=== PATIENT | male | born 1945 | race Caucasian/White ===

== ENCOUNTER → 2017-10-29 08:32 | Outpatient (CLI) | payer MEDICARE ==
[2015-10-25 11:26] VITALS: BMI 29.1
[~2017-10-29 08:32] MED LIST: ACETAMINOPHEN500 M1 PO; ANDROGEL5 GM TP; BAYER CHEWABLE81 MG PO; CELEBREX200 MG PO; CIALIS10 MG PO; CO Q-10100 MG PO; CRESTOR10 MG PO; GLUCOSAMINE & C1 CAP PO; INDERAL10 MG PO; MULTIPLE VITAMI1 TA1 PO; OMEGA-3100 MG PO; OMEPRAZOLE20 M1 PO; PLAVIX75 MG PO; RESTORIL15 MG PO; ULTRAM50 MG PO; VITAMIN B-121000 MCG PO; ZANAFLEX4 MG PO; ZOCOR20 MG PO
== END | disposition home or self-care (01) ==
LOC: D.RAD 08:32
DX: M25.551 Pain in right hip (principal)

== ENCOUNTER → 2018-01-14 07:28 | Outpatient (CLI) | payer MEDICARE ==
[~2018-01-14] VITALS: Ht 165.1 cm; Wt 72.7 kg
--- NOTE | ~2018-01-14 | OP ---
PATIENT NAME: WINSTON WHITMORE MEDICAL RECORD: [id number] :47 LOCATION:D.CAT ADMISSION DATE: SURGEON: JERED LARA MD DATE OF OPERATION: 01/14/2018 DATE OF SERVICE: 01/14/2018 PROCEDURES: 1. PTCA stent of LAD. 2. PTCA of LAD diagonal. 3. Intravascular ultrasound. 4. Left ventriculogram. 5. Left heart catheterization. 6. Selective coronary angiography. INDICATION: Angina and coronary artery disease. PROCEDURE IN DETAIL: After informed consent was obtained and after detailed description of risks, benefits as well as alternative therapies, the patient elected to proceed with angiogram and angioplasty. The right radial area was prepped and draped in normal sterile fashion. Right radial artery was cannulated via modified Seldinger technique with placement of 6-[place] sheath. All catheters exchanged through this sheath. FINDINGS: The left ventriculogram was performed in standard 30-degree CHRIS view, reveals good cardiac wall motion throughout all segments. Overall ejection fraction estimated 60%. SELECTIVE CORONARY ANGIOGRAPHY: 1. Left main is with no significant angiographic disease. 2. Left anterior descending has a previously placed stent with greater than 70% in-stent restenosis confirmed by intravascular ultrasound. 3. Left circumflex has mild irregularities, but no flow-limiting stenosis. 4. Right coronary has a previously placed stent that is widely patent with no significant restenosis. No disease elsewise throughout the RCA or its branches. PTCA STENT OF THE LAD: The stent used 3.0 x 18 mm Flushing. This caused plaque shift into the diagonal. Diagonal was addressed with a 2.5 balloon. Result was 0% residual. OVERALL IMPRESSION: Successful percutaneous transluminal coronary angioplasty stent of the left anterior descending going from 75% initial stenosis to 0% residual stenosis. TRANSINT:[id number] Voice Confirmation ID: [id number] DOCUMENT ID: [id number] JERED LARA MD at 1950 CC: [id number] DICTATION DATE: 01/14/18931 PUTTY MAKER: 01/14/1843 DEP CLI 01/14/18 [id number] [place] [address]
--- NOTE | ~2018-01-14 | HEMODYNAMI ---
PATIENT:WINSTON WHITMORE MEDICAL RECORD: [id number] : 47 LOCATION:DYUNIOR ADMISSION DATE: 01/14/18 Generatedon:01/14/20189:35 Patient name: WINSTON WHITMORE Patient #: [id number] SSN: D OB: 1945 Date of study: 01/14/2018 Page: Of Hemodynamic Procedure Report Patient Data Patient Demographics Procedure consent was obtained First Name: WINSTON Gender: Male Last Name: HAIM : 1945 [facility] Initial: CAITLYN Age: 72 year(s) Patient #: [id number] Race: Additional ID: [id number] Contact details Address: [address] [place] [address] [place] State: [place] City: [place] Zip code: [address] Past Medical History Allergies: No known allergies Admission Admission Data Admission Date: 01/14/2018 Admission Time: 7:28 Admit Source: Other Lab Results Lab Result Date: 01/14/2018 Lab Result Time: 8:00 Biochemistry Name Units Result Min Max BUN mg/dl 29 --(----)-* 7 18 Creatinine mg/dl 1 --(--*-)-- 0.6 1.3 CBC Name Units Result Min Max Hematocrit % 50.9 --(--*-)-- 42 54 Hemoglobin g/dl 17.6 --(----)*- 13.5 17.5 Procedure Procedure Types Cath Procedure Diagnostic Procedure LHC LHC w/Coronaries FFR/IVUS Intra-Coronary IVUS Initial PCI Procedure Coronary Stent Coronary Stent Initial PTCA PTCA Additional Procedure Description Procedure Date Procedure Date: 01/14/2018 Procedure Start Time: 9:14 Procedure End Time: 9:33 Procedure Staff Name Function González Glez MD Performing Physician Ayo Francis RT Monitor Yaron Sneed RT Scrub Aaron Patel RT Senior Linux Systems Engineer Pablo Alberto RN Nurse Procedure Data Cath Procedure Fluoroscopy Diagnostic fluoroscopy Total fluoroscopy Time: 4.1 time: 4.1 min min Diagnostic fluoroscopy Total fluoroscopy dose: 643 dose: 643 mGy mGy Contrast Material Contrast Material Type Amount (ml) Isovue 300 98 Entry Location Entry Primary Successful Side Size Upsize Upsize Entry Closure Lemons ccessful Closure Location (Fr) 1 (Fr) 2 (Fr) Remarks Device Remarks Radial Right 6 Fr Mechanical artery Short Compression Estimated blood loss: 10 ml Diagnostic catheters Device Type Used For End Catheter Placement DIAGNOSTIC Firebaugh 110cm 5 Procedure Fr catheter ([id number]) Procedure Complications No complications Procedure Medications Medication Administration Route Dosage 0.9% NaCl I.V. 100 ml/hr Oxygen etCO2 Nasal cannula 2 l/min Heparin Flush Bag added to field 2 bags (1000units/500ml NS) Lidocaine 2% 20 Radial Cocktail added to field 1 syringe (Verapomil 2mg/Nitro 400mcg/Heparin 1500units) Versed I.V. 2 mg Fentanyl I.V. 100 mcg Radial Cocktail I.A. 1 syringe (Verapomil 2mg/Nitro 400mcg/Heparin 1500units) Heparin Bolus I.V. 4000 units Integrilin (Bolus I.V. 6.8 ml 2mg/ml) Integrilin (Bolus wasted 3.2 ml 2mg/ml) Plavix P.O. 600 mg Hemodynamics Rest HGB: 17.6 (g/dl) Heart Rate: 53 (bpm) Snapshots Pre Cath Intra NCS Post Cath Vital Signs Time Heart Resp SPO2 etCO2 NIBP Rhythm Pain Sedation Rate (ipm) (%) (mmHg) (mmHg) Status Level (bpm) 8:59:38 43 16 99 0 129/65(93) NSR 0 (11) 10(A) , No pain 9:03:48 56 14 98 37.6 117/70(88) NSR 0 (11) 10(A) , No pain 9:07:56 50 12 97 0 113/65(83) NSR 0 (11) 10(A) , No pain 9:12:02 52 14 92 19.5 110/65(76) NSR 0 (11) 10(A) , No pain 9:16:10 89 24 97 19.5 119/59(78) NSR 0 (11) 10(A) , No pain 9:20:20 59 32 93 0 110/60(79) NSR 0 (11) 9(A) , No pain 9:24:30 52 18 94 0 105/53(75) NSR 0 (11) 9(A) , No pain 9:28:35 48 17 96 33.1 116/57(72) NSR 0 (11) 10(A) , No pain 9:32:43 52 11 95 25.6 115/64(77) NSR 0 (11) 10(A) , No pain Medications Time Medication Route Dose Verified Delivered Reason Note s Effectiveness by by 9:00:44 0.9% NaCl I.V. 100 Pablo Pablo Per physician ml/hr Dolly Alberto RN RN 9:00:54 Oxygen etCO2 2 l/min Pablo Pablo Per physician Nasal Dolly Alberto cannula RN RN 9:01:06 Heparin Flush added 2 bags Pablo Pablo used for Bag to Dolly Alberto procedure (1000units/500ml field RN RN NS) 9:01:17 Lidocaine 2% 20ml Pablo Pablo for local vial Dolly Alberto anesthetic RN RN 9:01:31 Radial Cocktail added 1 Pablo Pablo used for (Verapomil to syringe Lorigan Sedaigan procedure 2mg/Nitro field RN RN 400mcg/Heparin 1500units) 9:15:54 Versed I.V. 2 mg Pablo Pablo for sedation Dolly Alberto RN RN 9:16:03 Fentanyl I.V. 100 mcg Pablo Pablo for sedation Dolly Alberto RN RN 9:16:22 Radial Cocktail I.A. 1 Pablo González for (Verapomil syringe Dolly Glez MD vasodilation 2mg/Nitro RN 400mcg/Heparin 1500units) 9:21:04 Heparin Bolus I.V. 4000 Pablo Pablo for units Dolly Alberto anticoagulation RN RN 9:25:09 Integrilin I.V. 6.8 ml Pablo Pablo for (Bolus 2mg/ml) Dolly Alberto antiplatelet RN RN therapy 9:25:22 Integrilin wasted 3.2ml Pablo Pablo to sharp's (Bolus 2mg/ml) Dolly Alberto RN RN 9:31:13 Plavix P.O. 600 mg Pablo Pablo for Dolly Alberto antiplatelet RN RN therapy Procedure Log Time Note 8:44:40 Informed consent obtained and on chart 8:44:43 Admit Source: Other 8:45:18 Diagnostic Cath status Elective 8:45:20 Aaron Patel RT(R) sent for patient. Start room use. 8:45:21 Time tracking: Regular hours (M-F 7:00 - 5:00) 8:45:24 Plan of Care:Hemodynamics will remain stable., Cardiac rhythm will remain stable., Comfort level will be maintained., Respiratory function will remain adequate., Patient/ family verbilizes understanding of procedure., Procedure tolerated without complication., Recovers from procedure without complications.. 8:45:37 H&P Date Dictated: 01/08/2018 Within 30 days and on chart., H&P Addendum completed by physician on day of procedure. (MUST COMPLETE FOR ALL OUTPATIENTS). 8:46:05 Patient allergic to No known allergies 8:46:10 Is the patient allergic to Iodine/contrast media? No. 8:50:56 Patient received from Pre/Post Procedure Room to [facility] 2 Alert and oriented. Tansferred to table in Supine position. 8:50:58 Warm blankets applied, and gloria hugger turned on for patient comfort. 8:50:58 Correct patient and procedure confirmed by team. 8:50:59 ECG and BP/O2 sat monitors applied to patient. 8:58:22 Vital chart was started 9:00:44 0.9% NaCl 100 ml/hr I.V. was administered by Pablo Alberto RN; Per physician; 9:00:54 Oxygen 2 l/min etCO2 Nasal cannula was administered by Pablo Alberto RN; Per physician; 9:01:06 Heparin Flush Bag (1000units/500ml NS) 2 bags added to field was administered by Pablo Alberto RN; used for procedure; 9:01:17 Lidocaine 2% 20ml vial was administered by Pablo Alberto RN; for local anesthetic; 9:01:31 Radial Cocktail (Verapomil 2mg/Nitro 400mcg/Heparin 1500units) 1 syringe added to field was administered by Pablo Alberto RN; used for procedure; 9:07:57 Baseline sample Acquired. 9:08:02 Rhythm: sinus rhythm 9:08:04 Full Disclosure recording started 9:08:06 Pre-procedure instructions explained to patient. 9:08:06 Pre-op teaching completed and patient verbalized understanding. 9:08:07 Family in waiting room. 9:08:08 Patient NPO since Midnight. 9:08:12 Patient diabetic? No. 9:08:15 Previous problem with sedation/anesthesia? No ? 9:08:15 Snore? Yes 9:08:55 Possible sleep apnea. Sleep study scheduled. 9:08:59 Deviated septum? No 9:09:00 Opens mouth fully? Yes 9:09:00 Sticks out tongue? Yes 9:09:02 Airway obstruction? No ? 9:09:04 Dentures? No ? 9:09:07 Pre procedure: right dorsailis pedis pulse 2+ Normal; easily identifiable; not easily obliterated 9:09:09 Modified Bk's test Ulnar < 7 seconds 9:09:10 Patient pain scale 0/10 ?. 9:09:19 IV patent on arrival in left forearm with 0.9% NaCl at [facility]. 9:09:49 Lab Result : BUN 29 mg/dl 9:09:49 Lab Result : Creatinine 1 mg/dl 9:09:49 Lab Result : Hemoglobin 17.6 g/dl 9:09:49 Lab Result : Hematocrit 50.9 % 9:09:58 Lab results completed and on chart. 9:10:01 Right Radial & Right Groin area was prepped with chlora-prep and draped in sterile fashion 9:10:02 Alarms reviewed by R. N. 9:10:10 Sharps counted by scrub and verified by R.N. 9:10:12 Use device set Radial Dx or PCI 9:10:13 ACIST Syringe (16598) opened to sterile field. 9:10:13 Medline Cath Pack ([id number]) opened to sterile field. 9:10:13 Bag Decanter () opened to sterile field. 9:10:14 ACIST Hand Control (58790) opened to sterile field. 9:10:14 ACIST Manifold (15140) opened to sterile field. 9:10:15 Tegaderm 4 x 4 (1626W) opened to sterile field. 9:10:16 MBrace Wrist Support ([id number]) opened to sterile field. 9:10:17 SHEATH 6Fr Prelude Radial ([id number]) opened to sterile field. 9:10:18 DIAGNOSTIC WIRE .035 260cm J wire (534357) opened to sterile field. 9:10:25 Physician paged 9:13:28 Physician arrived 9:14:00 --------ALL STOP TIME OUT------ 9:14:01 Final Timeout: patient, procedure, and site verified with staff and physician. All members of the team are in agreement. 9:14:02 Right Radial & Right Groin site verified by team. 9:14:05 Physical assessment completed. ASA score P 2 - A patient with mild systemic disease as per González Glez MD. 9:14:08 Sedation plan: IV Moderate Sedation Medication:Versed, Fentanyl 9:14:21 Zero performed for pressure channel P1 9:14:34 Procedure started. 9:14:37 Local anesthetic to right radial artery with Lidocaine 2% by González Glez MD.INITIAL ACCESS ONLY 9:14:43 A 6 Fr Short sheath was inserted into the Right Radial artery 9:15:20 A DIAGNOSTIC Firebaugh 110cm 5 Fr catheter (075485) was advanced over the wire and used for Procedure. 9:15:54 Versed 2 mg I.V. was administered by Pablo Alberto RN; for sedation; 9:16:03 Fentanyl 100 mcg I.V. was administered by Pablo Alberto RN; for sedation; 9:16:22 Radial Cocktail (Verapomil 2mg/Nitro 400mcg/Heparin 1500units) 1 syringe I.A. was administered by González Glez MD; for vasodilation; 9:16:29 LV gram done using CHRIS 9:16:31 Injector settings: Ml/sec: 5, Volume: 15, 9:16:32 LV hemodynamics recorded. 9:16:39 EF : 55 % 9:16:42 LCA angiography performed. 9:17:21 CHOICE PT Extra Support 182cm wire ([id number]) opened to sterile field. 9:17:22 INFLATOR Merit BasixCompak (MF1245) opened to sterile field. 9:17:54 RCA angiography performed. 9:18:42 [place]li[place] Eagleye IVUS Catheter (80043X) opened to sterile field. 9:21:04 Heparin Bolus 4000 units I.V. was administered by Pablo Alberto RN; for anticoagulation; 9:21:26 GUIDE 6FR XBLAD 3.5 catheter ([id number]) opened to sterile field. 9:21:33 6 Fr XBLAD 3.5 guide catheter was inserted over the wire 9:21:45 CHOICE PT ES wire advanced. 9::48 Wire advanced across lesion. 9:23:52 IVUS catheter advanced over wire. 9:23:54 IVUS pass to LAD lesion performed. 9:23:55 IVUS catheter removed over wire. 9:25:09 Integrilin (Bolus 2mg/ml) 6.8 ml I.V. was administered by Pablo Alberto RN; for antiplatelet therapy; 9:25:12 Place stent Inflation Number: 1 A MELE RX 3.0 x 18 stent ([id number]) was prepped and advanced across the Prox LAD. The stent was deployed at 17 NAVIN for 0:10 (min:sec). 9:25:22 Integrilin (Bolus 2mg/ml) 3.2ml wasted was administered by Pablo Alberto RN; to sharp's; 9:25:32 Wire redirected to DIAG. 9:25:38 Stent catheter was removed intact over wire. 9:27:32 Inflate balloon Inflation number: 1 A EUPHORA 2.5 x 12 Balloon ([id number]) was prepped and advanced across the 1st Diag, then inflated to 15 NAVIN for 0:10 (min:sec). 9:27:48 Balloon removed over the wire. 9:27:49 Wire removed. 9:27:49 Guide catheter removed. 9:27:59 TR BAND Standard ([id number]) opened to sterile field. 9:28:10 Sheath removed intact; hemostasis achieved with Mechanical Compression to the Right Radial artery. 9:28:11 Procedure ended.(Physican Out) 9:29:32 Fluoroscopy time 04.10 minutes. 9:29:48 Fluoroscopy dose: 643 mGy 9:29:48 Flurop Dose total: 643 9:29:59 Contrast amount:Isovue 300 98ml. 9:30:00 Sharps counted by scrub and verified by R.N. 9:30:03 TR band inflated with 12cc of air. 9:30:05 Insertion/operative site no bleeding no hematoma. 9:30:10 Post right radial artery:stable, soft, clean and dry 9:30:11 Post Procedure Pulses reassessed and unchanged 9:30:13 Post-procedure physical assessment completed. ASA score P 2 - A patient with mild systemic disease as per González Glez MD. 9:30:16 Post procedure rhythm: unchanged. 9:30:20 Estimated blood loss: 10 ml 9:30:21 Post procedure instruction explained to patient.Patient verbalizes understanding. 9:30:21 Patient needs reinforcement of post procedure teaching. 9:31:13 Plavix 600 mg P.O. was administered by Pablo Alberto RN; for antiplatelet therapy; 9:32:33 Procedure type changed to Cath procedure, Diagnostic procedure, LHC, LHC w/Coronaries, FFR/IVUS, Intra-Coronary IVUS Initial, PCI procedure, Coronary Stent, Coronary Stent Initial, PTCA, PTCA Additional 9:33:11 Procedure and supply charges have been captured, reviewed, submitted and are correct. 9:33:13 Procedure Complication : No complications 9:33:16 Vital chart was stopped 9:33:16 See physician's report for complete and final results. 9:33:17 Report given to Pre/Post Procedure Room. 9:33:19 Patient transfered to Pre/Post Procedure Room with Stretcher. 9:33:21 Procedure ended. 9:33:21 Full Disclosure recording stopped 9:33:25 End room use (Document Last) Intervention Summary Intervention Notes Time ActionType Lesion and Equipment Used Action# Pressure Duration Attributes 9:25:12 Place stent Prox LAD MELE RX 3.0 x 1 17 00:10 18 stent ([id number]) 9:27:32 Inflate 1st Diag EUPHORA 2.5 x 1 15 00:10 balloon 12 Balloon ([id number]) Device Usage Item Name Manufacture Quantity Catalog Number Hospital Part Current Minimal Lot# / Charge Number Stock Stock Serial# Code ACIST Syringe Acist 1 02903 [id number] 192830 096368 20 (04366) Medical Systems Sp[employer]alty Medline Cath Cardinal 1 [id number] 065498 21521 384230 5 Pack Health ([id number]) Bag Decanter Microtek 1 125760 19470 227501 5 () Medical Inc. ACIST Hand Acist 1 27261 860957 268608 217747 5 Control (72661) Medical Systems Inc ACIST Manifold Acist 1 39568 273449 022170 604785 5 (22396) Medical Systems Inc Tegaderm 4 x 4 3M 1 1626W 166836 156059 161156 5 (1626W) MBrace Wrist Advanced 1 140-0250-00 042179 38475 026280 5 Support Vascular ([id number]) Dynamics SHEATH 6Fr Merit 1 [id number] 317471 548718 535170 5 Prelude Radial Medical ([id number]) DIAGNOSTIC WIRE St [place] 1 043549 002991 296601 788320 30 .035 260cm J wire (744635) DIAGNOSTIC Terumo 1 405013 895251 578442 484913 5 Firebaugh 110cm 5 Fr catheter (439011) CHOICE PT Extra [place] 1 [id number] 959093 968760 517061 5 Support 182cm Scientific wire ([id number]) INFLATOR Merit Merit 1 [id number] 174131 925988 993255 15 [facility] (FO2441) [place] 1 [id number] 240741 175207 814567 8 [place]li[place] Eagleye IVUS Catheter (83619U) GUIDE 6FR XBLAD Cardinal 1 [id number] 247859 997343 541798 10 3.5 catheter Health (57284741) MELE RX 3.0 x Medtronic 1 [id number] 674402 3013356 803733 5 [id number] 18 stent ([id number]) EUPHORA 2.5 x Medtronic 1 [id number] 406408 221831 816835 5 [id number] 12 Balloon ([id number]) TR BAND Terumo 1 [id number] 421355 775638 405853 40 Standard (THP55ESE) Signature Audit [place]yn[place] Stage Time Signature Unsigned Intra-Procedure 01/14/2018 Ayo Francis 9:35:09 AM RT(R) Signatures Monitor : Ayo Francis RT Signature : Date : Time : [facility] [address] [place] [address]
[~2018-01-14 07:28] MED LIST changes: +FLOMAX0.4 MG PO; +PROPRANOLOL HCL20 MG PO; +PROTONIX40 MG PO
[2018-01-14 07:55] VITALS: BP 132/78; Ht 165.1 cm; Wt 72.7 kg
[2018-01-14 08:11] LABS: BASOPHILS 0.6 % (0-2); HEMATOCRIT 50.9 % (42.0-54.0); HEMOGLOBIN 17.6 g/dL (13.5-17.5); LYMPHOCYTES 34.8 % (15-50); MCH 30.9 pg (26.0-34.0); MCHC 34.6 g/dL (31.0-37.0); MCV 89.3 fL (80.0-100.0); MEAN PLATELET VOLUME 10.8 fL (7.4-10.4); MONOCYTES 13.8 % (2-11); NEUTROPHILS 47.8 % (40-80); PLATELET COUNT 148 10x3/uL (130-400); WBC 4.7 10x3/uL (4.8-10.8)
[2018-01-14 08:27] LABS: CALC OSMOLALITY 284 mosm/kg (275-300); CALCIUM 8.9 mg/dL (8.5-10.1); CARBON DIOXIDE 29.2 mmol/L (21.0-32.0); CHLORIDE - SERUM 106 mmol/L (98-107); GLUCOSE 106 mg/dL (74-106); POTASSIUM - SERUM 4.5 mmol/L (3.5-5.1); SODIUM 140 mmol/L (136-145); UREA NITROGEN 29 mg/dL (7-18); eGFR NON AFRICAN AMERICAN 78 mL/min (90-120)
== END | disposition home or self-care (01) ==
LOC: D.CATH 07:28
PROVIDERS: Internal Medicine Interventional Cardiology
DX: I25.119 Atherosclerotic heart disease of native coronary artery with unspecified angina pectoris (principal); T82.855A Stenosis of coronary artery stent, initial encounter; Z01.812 Encounter for preprocedural laboratory examination
CPT/HCPCS: 92921; 92978; 93458; C9600

== ENCOUNTER 2018-07-28 19:45 | Emergency (ER) | payer MEDICARE ==
[~2018-07-28] VITALS: Ht 165.1 cm; Wt 74.1 kg
[2018-07-28 20:17] VITALS: Ht 165.1 cm; Wt 74.1 kg
[2018-07-28] MEDS ORDERED: TAMIFLU75 MG PO (21:26)
[2018-07-28] MEDS ORDERED: PHENERGAN DM SYR5 ML PO (21:26)
[2018-07-28 22:09] VITALS: BP 130/58
== END 2018-07-28 22:09 | disposition home or self-care (01) ==
LOC: D.ER 19:45
DX: J09.X2 Influenza due to identified novel influenza A virus with other respiratory manifestations (principal); R05 Cough; M79.18 Myalgia, other site; R50.9 Fever, unspecified

== ENCOUNTER 2019-04-01 09:55 | Day surgery (SDC) | payer MEDICARE ==
[2019-03-31 15:48] LABS: HEMATOCRIT 48.8 % (42.0-54.0); HEMOGLOBIN 15.6 g/dL (13.5-17.5); MCH 28.6 pg (26.0-34.0); MCV 89.5 fL (80.0-100.0); RBC 5.45 10x6/uL (4.20-6.10); RDW 15.6 % (11.5-14.5); WBC 8.4 10x3/uL (4.8-10.8)
[~2019-04-01] VITALS: Ht 165.1 cm; Wt 73.9 kg
[~2019-04-01 09:55] MED LIST changes: +PHENERGAN DM SYR5 ML PO; +TAMIFLU75 MG PO
[2019-04-01 10:43] VITALS: BP 140/77; Ht 165.1 cm; Wt 73.9 kg
--- NOTE | 2019-04-01 13:31 | OP ---
PATIENT NAME: WINSTON WHITMORE MEDICAL RECORD: [id number] :47 LOCATION:D.OPS ADMISSION DATE: SURGEON: ANDERSON PINEDA MD DATE OF OPERATION: 04/01/2019 SURGEON: Anderson Pineda MD ANESTHESIA: TIVA by Pradeep Devlin CRNA DIAGNOSIS: Obstructive benign prostatic hypertrophy. PROCEDURE: UroLift times 6 units deployed, 5 units held (2 in the left apex). FINDINGS: Bilateral lateral lobes obstruction with left apical lobe being greater than the right apex. Single ureteral orifices bilaterally with no bladder tumors seen. BLOOD LOSS: None. CLINICAL HISTORY: This is a 73-year-old male, who has obstructive BPH symptoms. They are not responsive to medication. He wishes to have the UroLift procedure done. He was given Ancef 2 grams IV solution advisor to the OR. DESCRIPTION OF PROCEDURE: The patient was given IV sedation. He was placed into the lithotomy position and prepped and draped. The UroLift scope was introduced. Findings are as outlined above. We used 2 units in the anterolateral sulcus, 1.5 cm distal to the bladder neck. Then, another 2 units were placed at the level of the verumontanum at the anterolateral sulcus level. On the right side, I had a misfire. I had to place another unit on the right verumontanum level. On the left side, the unit fired fine. Looking in with the obturator there was still residual obstruction from the enlarged left apex of the prostate. I placed another unit on the left side at the mid urethral level looking from anterior to posterior. This was placed at the verumontanum. The prostatic urethra was now wide open. The bladder was left partly filled with irrigation fluid. He will have a voiding trial today. I will see the patient in followup in 3 weeks' time. TRANSINT:[id number] Voice Confirmation ID: [id number] DOCUMENT ID: [id number] ANDERSON PINEDA MD at 1331 CC: [id number] DICTATION DATE: 04/01/19 1259 BIZTALK ARCHITECT: 04/01/19 1308 PRE [facility] [place] [address] [place] [address]
--- NOTE | 2019-04-01 16:20 | NUR ---
1430-PT UNABLE TO URINATE. BLADDER SCAN SHOWS 800CC OF URINE IN BLADDER.
--- NOTE | 2019-04-01 16:21 | NUR ---
1440-USING STERILE TECHNIQUE INSTERTED 16FR JAFFE WITH GOOD URINE RETURN,RED COLOT,DRAINING IN JAFFE BAD AT GRAVITY. IV REMOVED WITH CATH INTACT,DISPOSED INTO SHARPS,COVERED SITE WITH BANDAID.
--- NOTE | 2019-04-01 16:23 | NUR ---
1550-DISCHARGE CRITERIA MET. REVIEWED POST OPERATIVE INSTRUCTIONS, FOLLOW UP APPOINTMENT AND JAFFE CARE WITH PT AND SPOUSE. VERBALIZED UNDERSTANDING. ESCORTED OUT VIA W/C BY VOLUNTEER WITH SPOUSE AWAITING TO DRIVE HOME.
== END 2019-04-01 15:50 | disposition home or self-care (01) ==
LOC: D.OPS 09:55
PROVIDERS: Anesthesiology; ATTEND Urology
DX: N40.1 Benign prostatic hyperplasia with lower urinary tract symptoms (principal); N13.8 Other obstructive and reflux uropathy; N52.9 Male erectile dysfunction, unspecified; E78.5 Hyperlipidemia, unspecified; I10 Essential (primary) hypertension; K21.9 Gastro-esophageal reflux disease without esophagitis

== ENCOUNTER 2019-04-03 00:27 | Emergency (ER) | payer MEDICARE ==
[~2019-04-03] VITALS: Ht 165.1 cm; Wt 72.7 kg
[2019-04-03 00:38] VITALS: Ht 165.1 cm; Wt 72.7 kg
[2019-04-03 01:40] VITALS: BP 144/73
== END 2019-04-03 01:40 | disposition home or self-care (01) ==
LOC: D.ER 00:27
DX: T83.038A Leakage of other urinary catheter, initial encounter (principal)

== ENCOUNTER 2019-07-08 05:30 | Day surgery (SDC) | payer MEDICARE ==
[2019-07-06 10:24] LABS: HEMATOCRIT 51.9 % (42.0-54.0); HEMOGLOBIN 16.7 g/dL (13.5-17.5); MCH 27.3 pg (26.0-34.0); MCHC 32.2 g/dL (31.0-37.0); MCV 84.9 fL (80.0-100.0); MEAN PLATELET VOLUME 9.4 fL (7.4-10.4); RBC 6.11 10x6/uL (4.20-6.10); RDW 16.5 % (11.5-14.5); WBC 6.6 10x3/uL (4.8-10.8)
[~2019-07-08] VITALS: Ht 165.1 cm; Wt 72.6 kg
[2019-07-08 07:09] VITALS: BP 138/76; Ht 165.1 cm; Wt 72.6 kg
[2019-07-08] MEDS ORDERED: HYDROCODON-ACE1 EA10 PO (08:36)
--- NOTE | 2019-07-08 10:30 | NUR ---
PATIENT AMBULATES AROUND ROOM WITHOUT UNSTEADINESS OR DIZZINESS, PIV DC'D WITH TIP INTACT, SPOUSE ASSISTING PATIENT TO DRESS IN PERSONAL CLOTHING WHILE LEAVING RIGHT ARM SLING IN PLACE 6816 DISCHARGE INSTRUCTIONS REVIEWED WITH PATIENT AND SPOUSE, PATIENT DISCHARGED HOME VIA WHEELCHAIR TO PRIVATE VEHICLE WITH SPOUSE
--- NOTE | 2019-07-12 08:42 | OP ---
PATIENT NAME: WINSTON WHITMORE MEDICAL RECORD: [id number] :47 LOCATION:D.OPS ADMISSION DATE: SURGEON: STEPHEN STEINER MD DATE OF OPERATION: 07/08/2019 PREOPERATIVE DIAGNOSIS: Impingement syndrome of the right shoulder. POSTOPERATIVE DIAGNOSIS: Impingement syndrome of the right shoulder. PROCEDURES: 1. Arthroscopic distal clavicle excision done through separate incision - 1 cm. 2. Arthroscopic subacromial decompression, acromioplasty and bursectomy. SURGEON: Stephen Steiner MD ANESTHESIA: General. INTRAOPERATIVE COMPLICATIONS: None. SUMMARY OF PATHOLOGIC FINDINGS: Glenohumeral joint was relatively pristine. Minimal amount of biceps tendinitis was noted; however, the patient did have a large anterior acromion downsloping with acromioclavicular arthritis as well as coracoacromial ligament attritional changes. OPERATIVE SUMMARY IN DETAIL: After obtaining the appropriate preoperative orthopedic surgery consent as well as anesthetic consultation, evaluation and clearance, the patient was brought to the operating room and placed on the operating table in supine position. After adequate general laryngeal mask airway was administered, the patient was placed in a left lateral decubitus position. All pressure points were well padded to include down leg peroneal pad as well as axillary roll. The patient was held firmly to the operating table using the vacuum pack suction system. Right upper extremity and shoulder were then prepped and draped in routine sterile fashion. The arm was held in the Arthrex traction boom at 30 degrees of forward flexion, 30 degrees of abduction, 10 pounds of traction laterally. Arthroscopy was established in the glenohumeral joint from the posterior portal. Anterior portal was established in the anterior safe interval. Diagnostic arthroscopy did show the patient to have relatively pristine intraarticular findings. Attention was then turned to the subacromial space. While in the subacromial space, accessory lateral portal was created through which the [place] tissue ablation system was utilized to denude the undersurface of the acromion of all soft tissue elements. A 5.0 barrel bur was used to perform acromioplasty at the level of the acromioclavicular joint through a separate arthroscopic anterior portal. Distal clavicle was excised for 1 cm under direct arthroscopic visualization. Having completed this, the rotator cuff was thoroughly evaluated from a subacromial aspect and found to have substantial amount of bursitis; however, no full-thickness rotator cuff tearing was seen. There were attritional changes, but no rotator cuff repair was needed. Having completed this, arthroscopy portals were closed in routine interrupted fashion using 4-0 Prolene. Sterile dressings were applied. The patient was awakened and taken to the recovery room in stable condition. All final needle and sponge counts were correct. TRANSINT:[id number] Voice Confirmation ID: [id number] DOCUMENT ID: [id number] OPERATIVE REPORT [id number] WINSTON WHITMORE MD, STEPHEN JONES at 0842 CC: [id number] DICTATION DATE: 07/08/19 0834 PROFESSOR OF PUBLIC ADMINISTRATION: 07/08/19 1122 [facility] 07/08/[address] [address]
== END 2019-07-08 10:56 | disposition home or self-care (01) ==
LOC: D.OPS 05:30 → D.PAN 07:30 → D.OPS 07:30
PROVIDERS: Anesthesiology; ATTEND Orthopaedic Surgery
DX: M75.41 Impingement syndrome of right shoulder (principal); E78.00 Pure hypercholesterolemia, unspecified; I10 Essential (primary) hypertension; K21.9 Gastro-esophageal reflux disease without esophagitis; M75.42 Impingement syndrome of left shoulder

== ENCOUNTER → 2019-12-22 19:56 | Outpatient (CLI) | payer MEDICARE ==
[2019-07-08 07:09] VITALS: BMI 26.6
[~2019-12-22 19:56] MED LIST changes: +HYDROCODON-ACE1 EA10 PO
== END | disposition home or self-care (01) ==
LOC: D.LABREF 19:56
PROVIDERS: ATTEND Urology
DX: R31.9 Hematuria, unspecified (principal)

== ENCOUNTER → 2019-12-22 20:34 | Outpatient (CLI) | payer MEDICARE ==
[2019-07-08 07:09] VITALS: BMI 26.6
== END | disposition home or self-care (01) ==
LOC: D.LABREF 20:34
PROVIDERS: ATTEND Urology
DX: R31.9 Hematuria, unspecified (principal)